=== PATIENT | female | born 1960 | race American Indian/Alaskan Native ===

== ENCOUNTER 2017-12-17 10:38 | Emergency (ER) | payer OTHER ==
[2017-12-17 11:31] VITALS: TEMP 98.2
[2017-12-17] MEDS ORDERED: Oxycodone/Acetaminophen 5/325 mg Tab PO STA (12:19)
--- NOTE | 2017-12-17 12:28 | ED PDOC ---
Arrival/HPI - General Historian: Patient - History of Present Illness Time/Duration: 24 hours Symptom Onset: Gradual Symptom Course: Worsening - General Chief Complaint: Lower Extremity Problem/Injury Time Seen by Provider: 12/17/17 11:03 - History of Present Illness Narrative History of Present Illness (Text): 12/17/17 12:46 Patient is a 57 year old female with a past medical history of diabetes and hypertension presenting to the emergency room after being sent by [facility] for evaluation of left knee pain. She noticed a discomfort in her left knee during dinner last night which has gotten progressively worse. She reports severe pain located on the medial/posterior aspect of her left knee. The is localized to her left knee only. The pain is very sharp and worsened with movement. She has never injured her knee and denies any trauma. Denies popping or locking of knee. She has having difficulty standing on her knee due to the pain. She has no hx of blood clots and has never smoked. She was seen at [facility] earlier today , where she had a normal knee xray, was given a shot of toradol and given a prescription for tramadol. Per patient, she was told to follow up with emergency room because she needs to have MRI and CT of her knee. She has no other complaints at this time. (Jonah,Alexandro) Past Medical History - Provider Review Nursing Documentation Reviewed: Yes - Cardiac Hx Cardiac Disorders: Yes Hx Hypertension: Yes - Pulmonary Hx Respiratory Disorders: No - Neurological Hx Neurological Disorder: No - HEENT Hx HEENT Disorder: No - Renal Hx Renal Disorder: No - Endocrine/Metabolic Hx Endocrine Disorders: Yes Hx Diabetes Mellitus Type 2: Yes - Hematological/Oncological Hx Blood Disorders: No - Integumentary Hx Dermatological Disorder: No - Musculoskeletal/Rheumatological Hx Musculoskeletal Disorders: No - Gastrointestinal Hx Gastrointestinal Disorders: No - Genitourinary/Gynecological Hx Genitourinary Disorders: No - Psychiatric Hx Psychophysiologic Disorder: No Hx Substance Use: No - Surgical History Hx Coronary Stent: Yes Family/Social History - Physician Review Nursing Documentation Reviewed: Yes Family/Social History: Unknown Family HX Smoking Status: Never Smoked Hx Alcohol Use: No Hx Substance Use: No Allergies/Home Meds Allergies/Adverse Reactions: Allergies acetaminophen [From Percocet] Allergy (Verified 12/17/17 11:03) VOMITING oxycodone [From Percocet] Allergy (Verified 12/17/17 11:03) VOMITING Sulfa (Sulfonamide Antibiotics) Allergy (Verified 12/17/17 11:03) VOMITING Home Medications: Home Meds Medication Instructions Recorded Confirmed Aspirin [Adult Low Dose Aspirin EC] 81 mg PO DAILY 12/17/17 12/17/17 Evolocumab [Repatha Sureclick] 140 mg SC Q14D 12/17/17 12/17/17 MetFORMIN [glucoPHAGE] 500 mg PO BID 12/17/17 12/17/17 Vado-3 Fatty Acids/Fish Oil [Fish 1 cap PO DAILY 12/17/17 12/17/17 Oil 1,000 mg Capsule] amLODIPine [Norvasc] 10 mg PO DAILY 12/17/17 12/17/17 Review of Systems - Physician Review All systems were reviewed & negative as marked: Yes - Review of Systems Constitutional: Normal. absent: Fatigue, Fevers Respiratory: Normal. absent: SOB Cardiovascular: Normal. absent: Chest Pain, Palpitations, Edema Musculoskeletal: Other (left knee pain) Skin: Normal Neurological: Normal. absent: Headache, Dizziness Psychiatric: Normal Physical Exam Vital Signs Reviewed: Yes Temperature: Afebrile Blood Pressure: Normal Pulse: Regular Respiratory Rate: Normal Appearance: Positive for: Well-Appearing, Non-Toxic, Comfortable Pain Distress: None Mental Status: Positive for: Alert and Oriented X 3 - Systems Exam Head: Present: Atraumatic, Normocephalic Lower Extremity: Present: NORMAL PULSES, Tenderness (Medial join), Neurovascularly Intact, Capillary Refill < 2 s, Other (negative anterior drawer test, negative valgus/varus stress test). No: Edema, CALF TENDERNESS, Swelling , Erythema, Deformity, Temperature Abnormalties Neurological: Present: GCS=15, Speech Normal, Motor Func Grossly Intact Skin: Present: Warm, Normal Color Vital Signs Temp Pulse Resp BP Pulse Ox 12/17/17 13:56 64 18 116/78 98 12/17/17 11:05 98.2 F 59 L 16 113/67 96 Medical Decision Making Re-evaluation Time: 13:00 Reassessment Condition: Re-examined ED Course and Treatment: 12/17/17 12:32 Seen and examined with the resident. Our history and physical exam reveals a woman complaining of medial and posterior knee pain with no injury or trauma. There is no calf pain or swelling or tenderness. She is tender along the medial joint line. (Niels Prince) 12/17/17 12:35 Patient is having difficulty standing on leg. she is tender to medial joint line. She already had a left knee xray at [facility] today with report stating normal left knee xray without fracture or soft tissue swelling. Will not get repeat xray in ED. Ordered doppler of left leg to rule out dvt Percocet ordered for pain as patient already had a shot of Toradol this morning at [facility]. 12/17/17 12:59 Patient refused percocet because she does not want any narcotics. She requests Tylenol. Discussed with patient documented acetaminophen allergy, which she denied. States she takes tylenol at home with no problem. Will give Tylenol 650mg for pain. 12/17/17 14:28 Tylenol has given patient a lot of relief. No pain at rest. US shows no blood clot. Discussed with patient that she needs to follow up with Ortho. Patient refused any prescription pain medications. Will take ibuprofen and tylenol for pain. Knee wrapped with vivian bandage and crutches. (JonahAlexandro feldman) - RAD Interpretation Radiology Orders: 12/17/17 12:19 DUPLEX LOWER EXTRM VEIN LEFT [US] Stat - Medication Orders Current Medication Orders: Discontinued Medications Acetaminophen (Tylenol 325mg Tab) 650 mg PO STAT STA Stop: 12/17/17 12:59 Last Admin: 12/17/17 13:17 Dose: 650 mg MAR Pain/Vitals Document 12/17/17 13:17 GMD (Rec: 12/17/17 13:17 GMD [id number]) Pain Reassessment Is This A Pain ReAssessment? No Presence of Pain Presence of Pain Yes Disposition/Present on Arrival - Present on Arrival Any Indicators Present on Arrival: Yes History of DVT/PE: No History of Uncontrolled Diabetes: Yes Urinary Catheter: No History of Decub. Ulcer: No History Surgical Site Infection Following: None - Disposition Have Diagnosis and Disposition been Completed?: Yes Disposition Time: 14:30 Patient Plan: Discharge - Disposition Diagnosis: Left knee pain Disposition: HOME/ ROUTINE Patient Problems: Current Active Problems Problem Status Onset Left knee pain Acute Condition: GOOD Discharge Instructions (ExitCare): Knee Pain (DC) Additional Instructions: Patient needs to follow up with orthopedics for further evaluation and treatment of left knee injury. Patient is to take ibuprofen and/or tylenol for pain control. Forms: [email or web address] ([place])
[2017-12-17 13:56] VITALS: BP 116/78; PULSE 64; RESP 18; O2SAT 98
--- NOTE | 2017-12-18 09:54 | US ---
PROCEDURE: Left lower extremity venous US HISTORY: Leg pain and swelling. Evaluate for DVT. PHYSICIAN(S): Oren Sheldon MD. TECHNIQUE: Duplex sonography and color-flow Doppler with graded compression were used to evaluate the deep venous system of the left lower extremity. FINDINGS: The visualized deep venous system of the left lower extremity is sonographically normal and compressible. Normal wave forms and augmentation are seen. There is no sonographic evidence for deep venous thrombosis in the visualized segments of the left lower extremity. IMPRESSION: 1. No sonographic evidence for deep venous thrombosis in the visualized segments of the left lower extremity.
== END 2017-12-17 14:59 | disposition home or self-care (01) ==
LOC: ED 10:38
DX: M25.562 Pain in left knee (principal)